=== PATIENT | female | born 1985 | race Hispanic/Latino ===

== ENCOUNTER 2023-04-10 14:24 | Emergency (ER) | payer OTHER ==
[~2023-04-10] VITALS: Ht 154.9 cm; Wt 54.4 kg
[2023-04-10 14:29] VITALS: BP 129/82; PULSE 68; RESP 16
[2023-04-10] MEDS ORDERED: PREDNISONE 20 MG TABLET PO ONE (16:00)
[2023-04-10] MEDS ORDERED: IBUPROFEN 600 MG TABLET PO ONE (16:00)
[2023-04-10] MEDS ORDERED: ONDANSETRON ODT 4MG TAB SL ONE (16:00)
[2023-04-10] MEDS ORDERED: DIAZEPAM 5 MG TABLET PO ONE (16:00)
[2023-04-10] MEDS ORDERED: HYDROCODONE/ACETAMINOPHEN 5/325 MG TAB PO ONE (16:00)
[2023-04-10] MEDS ORDERED: IBUP-2070 PO (16:58)
[2023-04-10] MEDS ORDERED: METH-811 PO (16:58)
[2023-04-10] MEDS ORDERED: PRED20TA3 PO (16:58)
== END 2023-04-10 17:37 | disposition home or self-care (01) ==
LOC: EDH 14:24
DX: S16.1XXA Strain of muscle, fascia and tendon at neck level, initial encounter (principal); V43.52XA Car driver injured in collision with other type car in traffic accident, initial encounter; Y93.89 Activity, other specified; Y92.89 Other specified places as the place of occurrence of the external cause; Y99.8 Other external cause status
CPT/HCPCS: 72040; 81025